=== PATIENT | male | born 1970 | race African-American/Black ===

== ENCOUNTER 2022-05-27 16:01 | Emergency (ER) | payer SELFPAY | END 2022-05-27 18:33 | disposition home or self-care (01) | LOC: JD.ED 16:01 | DX: M54.50 Low back pain, unspecified (principal); I10 Essential (primary) hypertension; E11.9 Type 2 diabetes mellitus without complications | CPT/HCPCS: 72128; 72128-26; 72131; 72131-26; 99283 ==